=== PATIENT | male | born 1935 | race Caucasian/White ===

== ENCOUNTER → 2017-02-07 | Outpatient (CLI) | payer OTHER, MEDICARE | LOC: FIMAGING 10:35 | PROVIDERS: ATTEND Internal Medicine | DX: Z09 Encounter for follow-up examination after completed treatment for conditions other than malignant neoplasm (principal); R91.1 Solitary pulmonary nodule ==

== ENCOUNTER → 2018-08-07 | Outpatient (CLI) | payer OTHER, MEDICARE ==
[~2018-08-07] MED LIST: GADOBUTROL 10 ML VIAL IVP ONE
== END ==
LOC: FIMAGING 14:50
PROVIDERS: ATTEND Otolaryngology
DX: H91.93 Unspecified hearing loss, bilateral (principal); R90.82 White matter disease, unspecified; G31.9 Degenerative disease of nervous system, unspecified
CPT/HCPCS: 70553; A9585; 82565-PO